=== PATIENT | male | born 2000 | race Caucasian/White ===

== ENCOUNTER 2021-08-24 21:35 | Emergency (ER) | payer BC, MEDICAID ==
[~2021-08-24] VITALS: Ht 180.3 cm; Wt 61.0 kg
[2021-08-24 22:24] VITALS: BP 107/48
[2021-08-24] MEDS ORDERED: ibuprofen tablet 400 MG TABLET PO ONE (22:35)
[2021-08-24] MEDS ORDERED: ondansetron 4mg rapidly disintigrating tab PO ONE (22:35)
[2021-08-24] MEDS ORDERED: IBUP-1986 PO (23:57)
[2021-08-24] MEDS ORDERED: ONDA4TAB12 PO (23:57)
--- NOTE | 2021-08-25 00:18 | NUR ---
po challenge passed pt was able to keep down 10oz h20 and crackers.
== END 2021-08-25 00:20 | disposition home or self-care (01) ==
LOC: ER 21:36
DX: U07.1 COVID-19 (principal); R50.9 Fever, unspecified; R11.2 Nausea with vomiting, unspecified; R19.7 Diarrhea, unspecified; Z79.899 Other long term (current) drug therapy
CPT/HCPCS: 99283